=== PATIENT | male | born 1985 | race Caucasian/White ===

== ENCOUNTER 2019-05-05 07:46 | Outpatient (CLI) | payer BC, SELFPAY ==
[2019-05-05 08:24] LABS: Kit/Specimen SENT
== END 2019-05-05 08:06 ==
PROVIDERS: PCP Family Medicine; Visit Provider Obstetrics & Gynecology Reproductive Endocrinology
DX: Z20.89 Contact with and (suspected) exposure to other communicable diseases (principal)
CPT/HCPCS: 36415